=== PATIENT | female | born 1975 | race Caucasian/White ===

== ENCOUNTER 2017-09-23 09:45 | Day surgery (SDC) | payer BC, OTHER ==
[2017-09-23] MEDS: LR 1,000 ML IV (10:45)
[2017-09-23] MEDS ORDERED: PROPOFOL 200 MG/20 ML VIAL As Ordered (10:54)
[2017-09-23] MEDS ORDERED: LIDOCAINE 2% INJ 100 MG/5 ML SDV (FOR ANES.) As Ordered (10:54)
[2017-09-23] MEDS ORDERED: fentaNYL 100 MCG/2 ML INJECTION (J3010) As Ordered (10:54)
[2017-09-23] MEDS ORDERED: MIDAZOLAM INJ 2 MG/2 ML VIAL (J2250) As Ordered (10:55)
[2017-09-23] MEDS: THROMBIN SOLN 20,000 UNITS KIT As Ordered (11:11)
[2017-09-23] MEDS: HEPARIN SOD (PORCINE) 5000 UNITS/ML VIAL As Ordered (11:12)
[2017-09-23] MEDS: LIDOCAINE 1% SDV INJ 30 ML VIAL As Ordered (12:29)
[2017-09-23] MEDS: BUPIVACAINE HCL 0.5% 30 ML VIAL As Ordered (12:30)
[2017-09-23] MEDS ORDERED: LR 1,000 ML IV (13:00)
[2017-09-23] MEDS ORDERED: ONDANSETRON 4MG/2ML VIAL (J2405) IV (13:00)
[2017-09-23] MEDS ORDERED: PERCOCET 5MG/325MG TAB PO (13:00)
[2017-09-23] MEDS ORDERED: METOCLOPRAMIDE INJ 10MG/2ML VIAL (J2765) IV (13:00)
[2017-09-23] MEDS ORDERED: traMADol 50 MG TAB As Ordered (13:10)
[2017-09-23] MEDS: traMADol 50 MG TAB PO (13:15)
== END 2017-09-23 13:35 | disposition home or self-care (01) ==
LOC: M OR 09:45 → M SDC 09:46
DX: R59.0 Localized enlarged lymph nodes (principal); Z85.3 Personal history of malignant neoplasm of breast; Z92.3 Personal history of irradiation; I10 Essential (primary) hypertension; K21.9 Gastro-esophageal reflux disease without esophagitis; Z79.899 Other long term (current) drug therapy; F17.210 Nicotine dependence, cigarettes, uncomplicated
CPT/HCPCS: 38510

== ENCOUNTER 2018-05-20 11:06 | Day surgery (SDC) | payer BC, OTHER ==
[~2018-05-20] VITALS: Ht 157.5 cm; Wt 71.7 kg
[~2018-05-20 11:06] MED LIST: BUPR15TA PO; ERYTHROMYCIN OPHTH OINT As Ordered ONE; LETR2.5T2 PO; LIDOCAINE 2% W/EPIN INJ 20ML **PRES FREE As Ordered ONE; LIDOCAINE 3.5 % 1ML OPHTH TOPICAL GEL OU ONE; LISI-538 PO; LOPR1TAB6 PO; MOTR200T44 PO; POVIDONE-IODINE 5% OPHTH PREP SOL 30ML As Ordered ONE; PREV1CAP PO; [UNRECOGNIZED DRUG - CODE] XX
[2018-05-20] MEDS ORDERED: MIDAZOLAM INJ 2 MG/2 ML VIAL (J2250) As Ordered ONE (12:17)
[2018-05-20] MEDS ORDERED: PROPOFOL 200 MG/20 ML VIAL As Ordered ONE (12:17)
[2018-05-20] MEDS ORDERED: LIDOCAINE 2% INJ 100 MG/5 ML SDV (FOR ANES.) As Ordered ONE (12:17)
[2018-05-20] MEDS ORDERED: fentaNYL 100 MCG/2 ML INJECTION (J3010) As Ordered ONE (12:17)
[2018-05-20 14:45] VITALS: BP 140/78
--- NOTE | 2018-05-28 16:57 | RO ---
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 POSTOPERATIVE DIAGNOSIS: Visually significant upper lid dermatochalasis both eyes. PROCEDURE: Bilateral upper lid blepharoplasty. INDICATION: Visually significant bilateral upper lid dermatochalasis. SURGEON: Zac Mcknight DO MACHINING ENGINEER: ANESTHESIA: Local 2% lidocaine with epinephrine and sedation and monitoring by anesthesia. SPECIMENS: Sent to pathology. ESTIMATED BLOOD LOSS: Minimal. COMPLICATIONS: None. PROCEDURE IN DETAIL: After obtaining informed consent the patient was taken to the operating room where a time out was performed confirming that we had the correct patient and operative sites. The eyes were prepped and draped in a sterile fashion. The upper lids were examined and marked for an upper lid blepharoplasty. Lidocaine with 2% epinephrine was infused into the upper lids. The skin was excised with a cutting Bovie cautery. Coagulation was performed as needed for hemostasis. A strip of orbicularis was removed from the upper lid. The lids were reapproximated with a running #6-0 nylon suture. Antibiotic ointment and ice packs were applied to the upper lids. Patient returned to the recovery area in excellent condition. He will followup in the office. BARBIE
== END 2018-05-20 14:50 | disposition home or self-care (01) ==
LOC: M SDC 11:06
PROVIDERS: ATTEND Ophthalmology
DX: H02.834 Dermatochalasis of left upper eyelid (principal); H02.831 Dermatochalasis of right upper eyelid; I44.1 Atrioventricular block, second degree; I10 Essential (primary) hypertension; K21.9 Gastro-esophageal reflux disease without esophagitis; F41.9 Anxiety disorder, unspecified; F32.9 Major depressive disorder, single episode, unspecified; G43.909 Migraine, unspecified, not intractable, without status migrainosus; Z79.899 Other long term (current) drug therapy; Z95.0 Presence of cardiac pacemaker; Z90.710 Acquired absence of both cervix and uterus; Z98.51 Tubal ligation status; Z92.3 Personal history of irradiation; Z85.3 Personal history of malignant neoplasm of breast; Z72.0 Tobacco use
CPT/HCPCS: 15823; 88302; J2250; J3010